=== PATIENT | female | born 1985 | race Caucasian/White ===

== ENCOUNTER 2018-06-28 19:55 | Emergency (ER) | payer OTHER ==
--- NOTE | 2018-06-28 19:58 | EDM.PDOC ---
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 Past medical history: As per history of present illness and as reviewed below otherwise noncontributory. Surgical history: As per history of present illness and as reviewed below otherwise noncontributory. Social history: No reported history of drug or alcohol abuse. Family history: As per history of present illness and as reviewed below otherwise noncontributory. Physical exam: HEENT: Atraumatic, normocephalic, pupils reactive, negative for conjunctival pallor or scleral icterus, mucous membranes moist, throat clear, neck supple, nontender, trachea midline. Lungs: Clear to auscultation, breath sounds equal bilaterally, chest nontender. Heart: S1S2, regular, negative for clicks, rubs, or JVD. Abdomen: Soft, nondistended, nontender. Negative for masses or hepatosplenomegaly. Negative for costovertebral tenderness. Pelvis: Stable nontender. Genitourinary: Deferred. Rectal: Deferred. Extremities: Atraumatic, negative for cords or calf pain. Neurovascular unremarkable. Neuro: Awake, alert, oriented. Cranial nerves II through XII unremarkable. Cerebellum unremarkable. Motor and sensory unremarkable throughout. Exam nonfocal. Diagnostics: []Right foot complete right ankle complete Therapeutics: [] CAM boot crutches nonweightbearing Rest ice ibuprofen Follow-up with Dr. cotton Impression: []Right ankle injury Definitive disposition and diagnosis as appropriate pending reevaluation and review of above. right foot Pain Score (Numeric/FACES): 6 - Related Data Home Meds: Home Meds . [No Known Home Meds] 06/28/18 [History] ED ROS GENERAL - Review of Systems Review Of Systems: See Below ED EXAM, GENERAL - Physical Exam Exam: See Below Course - Vital Signs Last Recorded V/S: Last Vital Signs Temp 97.1 F 06/28/18 20:09 Pulse 136 H 06/28/18 20:09 Resp 18 06/28/18 20:09 BP 136/75 06/28/18 20:09 Pulse Ox 98 06/28/18 20:09 Departure - Departure Time of Disposition: 21:00 Disposition: Home, Self-Care 01 Condition: Good Clinical Impression: Right ankle injury, Right foot injury - Discharge Information Referrals: PCP,None [Primary Care Provider] - Additional Instructions: Cam boot crutches nonweightbearing Rest Ice 20 minute intervals 3 times daily 7-10 days Ibuprofen 400 mg 3 times daily 7-10 days Follow-up with occupational health in 2 weeks sooner as needed i.e. further restriction or medical clearance The following information is given to patients seen in the emergency department who are being discharged to home. This information is to outline your options for follow-up care. We provide all patients seen in our emergency department with a follow-up referral. The need for follow-up, as well as the timing and circumstances, are variable depending upon the specifics of your emergency department visit. If you don't have a primary care physician on staff, we will provide you with a referral. We always advise you to contact your personal physician following an emergency department visit to inform them of the circumstance of the visit and for follow-up with them and/or the need for any referrals to a consulting specialist. The emergency department will also refer you to a specialist when appropriate. This referral assures that you have the opportunity for follow-up care with a specialist. All of these measure are taken in an effort to provide you with optimal care, which includes your follow-up. Under all circumstances we always encourage you to contact your private physician who remains a resource for coordinating your care. When calling for follow-up care, please make the office aware that this follow-up is from your recent emergency room visit. If for any reason you are refused follow-up, please contact the [facility] emergency department at and asked to speak to the emergency department charge nurse.
--- NOTE | 2018-06-28 20:43 | CR ---
Indication: 120 pound drill bit fell on ankle and foot Technique: Three views right foot Comparison: None Findings: Bones: Alignment is normal. No acute fractures or bone lesions. Remote appearing deformity of the distal diaphysis of the 5th metatarsal. Joint spaces: Unremarkable. Soft tissues: Unremarkable. Impression: No acute abnormality. Dictated by Niharika Dudley MD @ Jun 28 2018 8:39PM Signed by Dr. Niharika Dudley @ Jun 28 2018 8:42PM
--- NOTE | 2018-06-28 20:45 | CR ---
Indication: 120 pound drill bit fell on ankle Technique: Three views right ankle Comparison: None Findings: Bones: Alignment is normal. No fractures or bone lesions. Joint spaces: Unremarkable. Soft tissues: Mild soft tissue swelling anterior to the distal tibia. Impression: No acute fracture. Mild soft tissue swelling anterior to the distal tibia. Dictated by Niharika Dudley MD @ Jun 28 2018 8:42PM Signed by Dr. Niharika Dudley @ Jun 28 2018 8:44PM
== END 2018-06-28 21:15 | disposition home or self-care (01) ==
LOC: MW.ED 19:55
DX: S99.911A Unspecified injury of right ankle, initial encounter (principal); S99.921A Unspecified injury of right foot, initial encounter; W20.8XXA Other cause of strike by thrown, projected or falling object, initial encounter
CPT/HCPCS: 73610-26-RT; 73610-RT; 73630-26-RT; 73630-RT; 99283